=== PATIENT | female | born 1955 | race Caucasian/White ===

== ENCOUNTER 2019-03-07 14:51 | Observation (INO) | payer BC ==
[~2019-03-07] VITALS: Ht 172.7 cm; Wt 108.4 kg
[~2019-03-07 14:51] MED LIST: CIPRO250 M1 PO; HYDROCODON-ACE1 EAC7 PO; LEVOTHROID; LISINOPRIL20 MG; MAXITROL EYE DRO5 ML OP; OMEPRAZOLE10 MG PO; SYNTHROID25 MC1 PO; VALACYCLOVIR1000 MG PO
[2019-03-07 14:59] VITALS: BP 167/87
[2019-03-07 15:28] LABS: ABSOLUTE BASOPHILS 0.1 thou/uL (0.0-0.2); ABSOLUTE EOSINOPHILS 0.1 thou/uL (0.0-0.7); ABSOLUTE MONOCYTES 0.4 thou/uL (0.0-1.2); ABSOLUTE NEUTROPHILS 2.8 thou/uL (1.6-8.1); EOSINOPHILS 1.8 %; HEMATOCRIT 36.2 % (37.0-47.0); HEMOGLOBIN 12.5 gm/dL (12.0-15.0); LYMPHOCYTES 46.7 %; MCH 29.9 pg (26.0-34.0); MCHC 34.7 g/dL (28.0-37.0); MCV 86.3 fL (80.0-100.0); MONOCYTES 6.4 %; MPV 8.6 fl. (7.2-11.1); NUCLEATED RBCS 0 /100WBC; PLATELET COUNT* 212 thou/uL (150-400); POLYS 44.1 %; RBC 4.19 mil/uL (4.20-5.00); RDW-CV 13.3 % (10.5-14.5); WBC 6.4 thou/uL (4.0-11.0)
[2019-03-07 15:36] LABS: CALCIUM 8.5 mg/dL (8.5-10.1); CREATININE 1.1 mg/dL (0.6-1.3); POTASSIUM 3.8 mmol/L (3.5-5.1)
[2019-03-07 20:00] VITALS: BP 112/67
[2019-03-07 21:00] VITALS: BP 112/64
[2019-03-08] VITALS: BP 128/66
[2019-03-08 04:00] VITALS: BP 137/75
--- NOTE | 2019-03-08 04:46 | NUR ---
PT. WAS ADMITTED TO ROOM 219 AT 2014, PT'S AND DTR PRESENT. PT. DENIED PAIN, DENIED SHORTNESS OF AIR. STATED SHE HAS "FELT JUST FINE" AND IS CONCERNED THAT SHE DIDN'T HAVE ANY SYMPTOMS WARNING HER OF THE CLOTS IN HER LUNGS. VITAL SIGNS STABLE. SINUS RHYTHM. PT. IS ABLE TO GET UP INDEPENDENTLY. ROOM AIR. LOVENOX ORDERED. PT. REMAINS VERY PLEASANT, ALERT AND ORIENTED. CALL LIGHT REMAINS IN REACH, WILL CONTINUE TO MONITOR.
[2019-03-08 07:45] VITALS: BP 142/83
--- NOTE | 2019-03-08 09:46 | EKG ---
[place] [address] ELECTROCARDIOGRAM REPORT Name: VERA ZELAYA Room: [address] ADM IN M.R.#: [id number] Admission: 03/07/19 Attend Phys: Tom Romero Discharge: Date of : 53 Report #: [id number] THIS REPORT FOR: //name// [facility] ED Test Date: 2019-03-07 Test Time: 14:59:44 Pat Name: VERA ZELAYA Department: Room: [facility] Gender: F Pony Rougher: : 1955 Requested By: Raul Jackson Order Number: [id number] MD: Eric Ellsworth Measurements Intervals Sandwich Rate: 74 P: 47 CO: 171 QRS: -3 QRSD: 133 T: 30 QT: 400 QTc: 444 Interpretive Statements Sinus rhythm Right bundle branch block Compared to ECG 06/23/2007 15:49:11 Right bundle-branch block now present Sinus bradycardia no longer present Electronically Signed On 03-08-2019 9:46:24 IMM[employer]RATION GUARD by Eric Ellsworth [email or web address] <ELECTRONICALLY SIGNED> By: Eric Ellsworth MD, FAC 03/08/19 0946 [id number] [id number] Eric Ellsworth MD, [facility] /EPI
--- NOTE | 2019-03-08 11:18 | NUR ---
ASSUMED PT CARE AT 0800, AOX4, UP AD RODDY, O2 SAT 90'S RA. TRACING SINUS RHYTHM ON TELE. PT DENIES PAIN, VSS, AM ASSESSMENT CHARTED, HOURLY ROUNDING, CALL LIGHT WITHIN REACH, WILL CONITINUE TO MONITOR.
--- NOTE | 2019-03-08 11:31 | NUR ---
MET WITH PT TO DISCUSS HOME SITUATION/DC PLANNING. PT LIVES WITH SPOUSE. SHE IS INDEPENDENT AND ACTIVE. USES NO EQUIPMENT. STATES SHE WILL BE ON MEDICARE OF APRIL. BRIEFLY DISCUSSED POSSIBLE AC WITH PT. SPOUSE IS ON [employer] AND THEY ARE FAMILIAR WITH THEM. WILL FOLLOW
[2019-03-08 11:44] VITALS: BP 133/77
[2019-03-08] MEDS ORDERED: ELIQUIS5 MG PO (12:36)
[2019-03-08 13:16] VITALS: BP 133/77
[2019-03-08 13:36] VITALS: BP 133/77
--- NOTE | 2019-03-08 14:08 | NUR ---
DISCHARGE PLAN DISCUSSED WITH THE PT AND . MEDICATION PACKET/SCRIPT GIVEN. IV, TELE REMOVED, ALL BELONGINGS PACKED AND CHECKED. LEFT THE UNIT AT 1408.
== END 2019-03-08 14:08 | disposition home or self-care (01) ==
LOC: M.ERS 14:51 → M.TBA-ER 17:45 → M.2W 17:45
PROVIDERS: Emergency Medicine Emergency Medical Services; ADMIT Family Medicine
DX: I26.99 Other pulmonary embolism without acute cor pulmonale (principal); I10 Essential (primary) hypertension; E03.9 Hypothyroidism, unspecified; K21.9 Gastro-esophageal reflux disease without esophagitis; Z79.899 Other long term (current) drug therapy; Z91.81 History of falling